=== PATIENT | male | born 1995 | race Caucasian/White ===

== ENCOUNTER 2018-05-02 08:21 | Emergency (ER) | payer SELFPAY ==
[2018-05-02] MEDS ORDERED: NS 0.9% 1000 ML* 1,000 ML IV ONE (08:36)
[2018-05-02 09:04] LABS: ABS Basophils 0 10^3/ul (0-0.2); ABS Eosinophils 0 10^3/ul (0-0.6); ABS Lymphocytes 0.4 10^3/ul (1.0-4.8); ABS Monocytes 0.9 10^3/ul (0-0.8); ABS Neutrophils 5.5 10^3/ul (1.5-7.7); ABS Nucleated RBC 0 10^3/ul; Eosinophil % 0.5 %; Hematocrit 41 % (42-52); Hemoglobin 13.9 g/dl (14.0-18.0); Lymphocyte % 6.4 %; Mean Corpuscular HGB Conc 34 g/dl (31-36); Mean Corpuscular Hemoglobin 30 pg (27-31); Mean Corpuscular Volume 90 fL (80-94); Mean Platelet Volume 7.5 fL (7.4-10.4); Nucleated Red Blood Cells % 0.1; Platelet Count 153 10^3/ul (150-450); Red Blood Count 4.59 10^6/ul (4.00-5.40); Red Cell Distribution Width 13 % (10.5-15); White Blood Count 6.9 10^3/ul (3.5-10.8)
[2018-05-02] MEDS ORDERED: Acetaminophen TAB* 325 MG PO ONE (09:06)
--- NOTE | 2018-05-02 09:07 | ED ---
Influenza-Like Illness - HPI Summary HPI Summary: Patient's an otherwise healthy 22-year-old male presenting to the ED with a 2 day history of subjective fevers and chills with sweats. He denies any chest congestion, chest pain, SOB, abdominal pain, UTI symptoms. He does endorse some bilateral neck pain and a headache. Mother was concerned for meningitis so was sent to [facility]. Today he states he awoke with a sore throat and sinus come to the ED for further evaluation. He continues to be eating and drinking okay. He did have one episode of nausea with vomiting this morning and had a syncopal episode. He has had syncopal episodes in the past he states. He did not hit his head and denies any LOC. Denies myalgias. Denies sick contacts. Denies a flu vaccination this year. - History of Current Complaint Chief Complaint: EDFluSymptoms Time Seen by Provider: 05/02/18 08:35 Hx Obtained From: Patient Onset/Duration: Sudden Onset Severity: Moderate Associated Signs & Symptoms: Fever - 100, T Max, F/C, Sore Throat, Headache - Risk Factors Influenza Risk Factors: Negative - Allergy/Home Medications Allergies/Adverse Reactions: Allergies Allergy/AdvReac Type Severity Reaction Status Date / Time No Known Allergies Allergy Verified 05/02/18 08:30 PMH/Surg Hx/FS Hx/Imm Hx Previously Healthy: Yes - Immunization History Hx Pertussis Vaccination: No Immunizations Up to Date: Yes Infectious Disease History: No Infectious Disease History: Denies: Traveled Outside the [place] in Last 30 Days - Social History Occupation: Unemployed, Student Lives: Dormitory/Roommates Alcohol Use: None Hx Substance Use: No Substance Use Type: Reports: None Hx Tobacco Use: No Smoking Status (MU): Never Smoked Tobacco Review of Systems Positive: Fever, Chills, Fatigue, Skin Diaphoresis Negative: Photophobia, Blurred Vision, Diplopia Positive: Sore Throat. Negative: Dental Pain, Ear Ache, Nasal Discharge Negative: Palpitations, Chest Pain Negative: Shortness Of Breath, Cough Positive: Abdominal Pain, Vomiting, Nausea. Negative: Diarrhea Genitourinary: Negative Positive: no symptoms reported, see HPI Negative: Arthralgia, Myalgia Positive: Headache - currently, Weakness All Other Systems Reviewed And Are Negative: Yes Physical Exam Triage Information Reviewed: Yes Vital Signs On Initial Exam: Initial Vitals Temp Pulse Resp BP Pulse Ox 100 F 104 18 96/50 97 05/02/18 08:27 05/02/18 08:27 05/02/18 08:27 05/02/18 08:27 05/02/18 08:27 Appearance: Positive: Well-Appearing, Well-Nourished Skin: Positive: Warm, Skin Color Reflects Adequate Perfusion Head/Face: Positive: Normal Head/Face Inspection Eyes: Positive: EOMI, GUILLERMINA, Conjunctiva Clear Neck: Positive: Supple, No Lymphadenopathy Respiratory/Lung Sounds: Positive: Clear to Auscultation, Breath Sounds Present Cardiovascular: Positive: RRR, Pulses are Symmetrical in both Upper and Lower Extremities. Negative: Tachycardia, Leg Edema Left, Leg Edema Right Abdomen Description: Positive: Nontender, Soft Musculoskeletal: Positive: Normal, Strength/ROM Intact Neurological: Positive: Speech Normal Psychiatric: Positive: Normal, Affect/Mood Appropriate AVPU Assessment: Alert Diagnostics - Vital Signs Vital Signs Temp Pulse Resp BP Pulse Ox 05/02/18 08:27 100 F 104 18 96/50 97 - Laboratory Result Diagrams: 05/02/18 08:58 05/02/18 08:58 Lab Statement: Any lab studies that have been ordered have been reviewed, and results considered in the medical decision making process. Flu Symptom Course/Dx - Course Course Of Treatment: Strep and flu swab obtained. He declines an IV at this time. Continues to eat and drink okay. He appears well and nontoxic on physical examination. Lungs CTA. RRR. Temp is 100 on arrival. Tylenol with good relief. Patient is feeling much improved after Tylenol. Labs obtained are unremarkable. Strep and flu negative. He will be discharged with viral syndrome and will follow-up with his PCP. Encouraged Tylenol and ibuprofen as well as plenty of fluids. - Diagnoses Differential Diagnosis/HQI/PQRI: Positive: Influenza, Upper Respiratory Infection Provider Diagnoses: Viral syndrome Discharge - Sign-Out/Discharge Documenting (check all that apply): Patient Departure - Discharge Plan Condition: Stable Disposition: HOME Patient Education Materials: Viral Syndrome (ED) Referrals: No Primary Care Phys,NOPCP [Primary Care Provider] - Additional Instructions: Drink plenty of fluids Tylenol 650mg three times daily and ibuprofen 600mg three times daily Use these intermittently Return for any worsening symptoms - Billing Disposition and Condition Condition: STABLE Disposition: Home
[2018-05-02 10:36] VITALS: BP 122/68
== END 2018-05-02 10:50 | disposition home or self-care (01) ==
LOC: ED 08:21
DX: B34.9 Viral infection, unspecified (principal)
CPT/HCPCS: 36415; 80053; 85025; 86308; 87651; 93005; 99282; A9270-GY